=== PATIENT | male | born 1965 | race Caucasian/White ===

== ENCOUNTER 2019-07-29 12:41 | Inpatient (IN) | payer MEDICAID ==
[2019-07-29] VITALS (11 sets, daily range): BP systolic 116–159; BP diastolic 82–105
[~2019-07-29] VITALS: Ht 182.9 cm; Wt 78.0 kg
[2019-07-29] MEDS ORDERED: piperacillin/tazo 3.375gm/50ml 50 ML IV ONE (13:10)
[2019-07-29] MEDS ORDERED: normal saline 1000ML IV soln IV ONE (13:10)
[2019-07-29] MEDS ORDERED: ondansetron/PF 4mg/2ml inj IV ONE (13:10)
[2019-07-29] MEDS: morphine 4 MG/ML inj SYRINge IV PRN ×2 (13:34→14:08)
[2019-07-29 13:35] LABS: BASOPHILS # (AUTO) 0.1 X10'3 (0-0.2); BASOPHILS % (AUTO) 0.4 % (0-1); EOSINOPHILS % (AUTO) 0 % (0-6); HEMATOCRIT 53.9 % (42.0-52.0); LYMPHOCYTES % (AUTO) 5.8 % (21-51); MEAN CORPUSCULAR HEMOGLOBIN 30.3 PG (27.0-31.0); MEAN CORPUSCULAR HGB CONC 34.7 g/dL (33.0-36.5); MEAN CORPUSCULAR VOLUME 87.3 FL (78-98); MONOCYTES # (AUTO) 1.2 X10'3 (0-0.9); MONOCYTES % (AUTO) 7.2 % (2-12); NEUTROPHILS # (AUTO) 14.6 X10'3 (1.8-7.7); NEUTROPHILS % (AUTO) 86.6 % (42-75); PLATELET COUNT 292 X10'3 (140-440); RED BLOOD COUNT 6.18 X10'6 (4.70-6.10); RED CELL DISTRIBUTION WIDTH 13.3 % (11.5-14.5); WHITE BLOOD COUNT 16.8 X10'3 (4.5-11.0)
--- NOTE | 2019-07-29 13:42 | NUR ---
pt to ct
[2019-07-29 13:43] LABS: HEMOGLOBIN 18.7 g/dl (14.0-17.9)
[2019-07-29 13:56] LABS: ALANINE AMINOTRANSFERASE 33 U/L (12-78); ALBUMIN 3.9 G/DL (3.4-5.0); ALBUMIN/GLOBULIN RATIO 0.8 (1.1-1.5); ALKALINE PHOSPHATASE 139 IU/L (46-116); ANION GAP 14 (8-16); ASPARTATE AMINO TRANSFERASE 14 U/L (10-37); BILIRUBIN,TOTAL 2.9 MG/DL (0.1-1.0); BLOOD UREA NITROGEN 12 MG/DL (7-18); BUN/CREATININE RATIO 9.8 (5.4-32.0); CALCIUM 9.5 MG/DL (8.5-10.1); CHLORIDE 97 MMOL/L (99-107); CREATININE 1.23 MG/DL (0.60-1.10); GLUCOSE 165 MG/DL (70-104); LIPASE 105 U/L (73-393); POTASSIUM 4.2 MMOL/L (3.5-5.1); SODIUM 136 MMOL/L (135-145); TOTAL PROTEIN 8.6 G/DL (6.4-8.2); eGFR 61 ML/MIN
--- NOTE | 2019-07-29 14:01 | NUR ---
PT BACK FROM CT
[2019-07-29] MEDS ORDERED: morphine 4 MG/ML inj SYRINge IV ONE (14:10)
[2019-07-29] MEDS ORDERED: metroNIDAZOLE-Flagyl 500mg/NS 100 ML IV STA (14:15)
[2019-07-29] MEDS ORDERED: MELA3TAB64 PO (14:27)
[2019-07-29] MEDS ORDERED: MARIJUANA (14:27)
[2019-07-29] MEDS ORDERED: IBUP-1984 PO (14:27)
[2019-07-29] MEDS ORDERED: fluconazole/NS 400mg/200ml bag 200 ML IV ONE (14:45)
[2019-07-29] MEDS ORDERED: HYDROmorphone 1 mg/ml syringe IV ONE (15:00)
[2019-07-29] MEDS: normal saline 1000ml 1,000 ML IV SCH ×4 (15:27→22:40)
[2019-07-29] MEDS ORDERED: normal saline 1000ML IV soln IVB ONE (15:30)
[2019-07-29] MEDS ORDERED: ondansetron/PF 4mg/2ml inj IV PRN ×2 (16:00→19:00)
[2019-07-29] MEDS ORDERED: mag hydrox/Alum hydrox/simeth 30ml oral suspension PO PRN (16:00)
[2019-07-29] MEDS ORDERED: acetaminophen 325mg tablet PO PRN (16:00)
[2019-07-29] MEDS ORDERED: HYDROmorphone inj. 0.5 MG/0.5 ML DISP.SYRIN IV PRN (16:00)
[2019-07-29] MEDS ORDERED: piperacillin/tazo 4.5gm/100ml 100 ML IV SCH (16:00)
[2019-07-29] MEDS ORDERED: magnesium hydroxide 30ml (MOM) UD suspension PO PRN (16:00)
[2019-07-29 16:19] LABS: PARTIAL THROMBOPLASTIN TIME 28 SECONDS (22-32)
--- NOTE | 2019-07-29 16:27 | NUR ---
RELIEVING RN FOR BREAK, PT C/O LOWER BACK AND ABD PAIN "04/16", NO N/V,
[2019-07-29 16:29] LABS: CLARITY,URINE CLEAR (Clear); COLOR,URINE AMBER (Yellow); GLUCOSE, URINE NEGATIVE (Neg); KETONES,URINE 40 mg/dl (Neg); LEUKOCYTE ESTERASE ,URINE NEGATIVE (Neg); NITRITES, URINE NEGATIVE (Neg); OCCULT BLOOD,URINE TRACE-LYSED (Neg); PROTEIN,URINE 30 mg/dl (Neg); UROBILINOGEN,URINE >=8.0 E.U/dL (0.2-1.0)
[2019-07-29 16:42] LABS: UA COLLECTION TYPE URINAL
[2019-07-29 16:48] LABS: MUCUS STRANDS MANY /LPF (Neg); SQUAMOUS EPITHELIAL CELL,UR NONE SEEN /LPF (FEW); TRANSITIONAL EPI CELLS,URINE FEW /HPF
[2019-07-29 16:50] LABS: BACTERIA,URINE NONE SEEN /HPF (Neg); RBC,URINE 0-2 /HPF (0-2); WBC,URINE 0-4 /HPF (0-4)
[2019-07-29] MEDS ORDERED: gentamicin 40 MG/1 ML inj ONE (17:36)
[2019-07-29] MEDS ORDERED: clindamycin phosphate 150mg/ml inj. ONE (17:36)
--- NOTE | 2019-07-29 17:52 | NUR ---
MIMM CALLED FROM OR REPORT WAS GIVEN, PT IS ON HIS WAY TO OR. OR TECH AT BEDSIDE WHEELING PT TO OR.
[2019-07-29] MEDS ORDERED: rocuronium 10mg/ml inj IV ONE ×2 (18:31→20:02)
[2019-07-29] MEDS ORDERED: sevoflurane 250ml liquid IH ONE (18:31)
[2019-07-29] MEDS ORDERED: midazolam 2 mg/2 ml injection ONE (18:34)
[2019-07-29] MEDS ORDERED: fentaNYL /PF 50mcg/ml 5ml ampule ONE (18:35)
[2019-07-29] MEDS ORDERED: ceFOXitin 2 GM ADDVANTGE BAG 100 ML IV ONE (18:37)
[2019-07-29] MEDS ORDERED: ringers solution, lacted 1,000 ML IV SCH (18:59)
[2019-07-29] MEDS ORDERED: morphine 4 MG/ML inj SYRINge IV PRN ×2 (19:00)
[2019-07-29] MEDS ORDERED: proCHLORperazine 10 MG/2 ml inj IV PRN (19:00)
[2019-07-29] MEDS ORDERED: meperidine/PF 25mg/ml syringe IV PRN ×2 (19:00)
[2019-07-29] MEDS: heparin, porcine 5000 units/ml vial SQ SCH (20:00)
[2019-07-29] MEDS ORDERED: albumin (Human) 5% 250ml 250 ML IV ONE (20:02)
[2019-07-29] MEDS ORDERED: propofol inj 20 ML IV ONE (20:02)
[2019-07-29] MEDS ORDERED: BUPIVAcaine/PF 2.5mg/ml (0.25%) 10ml vial ONE (20:23)
[2019-07-29] MEDS ORDERED: BUPIVAcaine/PF 2.5 mg/ml (0.25%) 30ml vial ONE (20:23)
[2019-07-29] MEDS ORDERED: BUPIVACAINE liposomal/PF 13.3 MG/ML vial IM ONE (20:23)
[2019-07-29] MEDS ORDERED: fentaNYL/PF 50MCG/1 ML 2ML syringe ONE (20:27)
[2019-07-29] MEDS ORDERED: glycopyrrolate 0.2mg/ml inj ONE (21:09)
[2019-07-29] MEDS ORDERED: neostigmine methylsulfate 1 MG/ML 10ml vial ONE (21:09)
--- NOTE | 2019-07-29 21:19 | NUR ---
Received from OR via BED, accompanied by Anesthesiologist DR MANCILLA and report given by Anesthesiologist. PT DROWSY, ABDOMEN W/LARGE DRSG CDI, COLOSTOMY W/SCANT AMT OF S/S DRAINAGE, DERICK TO RIGHT ABDOMEN W/SANGUINOUS DRAINAGE, VERA CATHETER TO GRAVITY DRAINAGE W/YELLOW URINE. Addendum: 07/29/19 at 2130 by Kiera Solis RN Amended: Links added.
--- NOTE | 2019-07-29 21:19 | NUR ---
Report called to receiving nurse. Transferred via BED, NO Belongings, RECEIVING RN AT BEDSIDE TO RECEIVE PT, BLL, CALL LIGHT GIVEN, SIDE RAILS UP X2, NGT ATTACHED TO LCS, SCANT AMT OF S/S DRAINAGE IN TUBING, SCANT AMT OF S/S DRAINAGE IN COLOSTOMY BAG. Special Issues communicated to receiving nurse. YES. Addendum: 07/29/19 at 2224 by Kiera Solis RN Amended: Links added.
[2019-07-29] MEDS: meperidine/PF 25mg/ml syringe IV PRN ×2 (21:33→21:59)
[2019-07-29] MEDS: piperacillin/tazo 4.5gm/100ml 100 ML IV SCH (22:00)
[2019-07-29] MEDS: HYDROmorphone 1 mg/ml syringe IV PRN (22:56)
[2019-07-30] VITALS (8 sets, daily range): BP systolic 111–140; BP diastolic 74–105
[2019-07-30] MEDS: HYDROmorphone 1 mg/ml syringe IV PRN ×5 (03:02→20:37)
[2019-07-30] MEDS: normal saline 1000ml 1,000 ML IV SCH ×3 (03:59→18:00)
[2019-07-30] MEDS: piperacillin/tazo 4.5gm/100ml 100 ML IV SCH ×3 (05:16→22:21)
[2019-07-30 05:59] LABS: BASOPHILS % (AUTO) 0.3 % (0-1); EOSINOPHILS % (AUTO) 0 % (0-6); HEMATOCRIT 40.3 % (42.0-52.0); HEMOGLOBIN 13.9 g/dl (14.0-17.9); LYMPHOCYTES # (AUTO) 0.9 X10'3 (1.1-4.8); LYMPHOCYTES % (AUTO) 9.3 % (21-51); MEAN CORPUSCULAR HEMOGLOBIN 30.5 PG (27.0-31.0); MEAN CORPUSCULAR HGB CONC 34.6 g/dL (33.0-36.5); MEAN PLATELET VOLUME 6.8 FL (7.4-10.4); MONOCYTES # (AUTO) 0.9 X10'3 (0-0.9); MONOCYTES % (AUTO) 9.9 % (2-12); NEUTROPHILS # (AUTO) 7.6 X10'3 (1.8-7.7); NEUTROPHILS % (AUTO) 80.5 % (42-75); PLATELET COUNT 197 X10'3 (140-440); RED BLOOD COUNT 4.58 X10'6 (4.70-6.10); RED CELL DISTRIBUTION WIDTH 13.3 % (11.5-14.5); WHITE BLOOD COUNT 9.4 X10'3 (4.5-11.0)
[2019-07-30 06:11] LABS: ALANINE AMINOTRANSFERASE 20 U/L (12-78); ALBUMIN 2.3 G/DL (3.4-5.0); ALBUMIN/GLOBULIN RATIO 0.8 (1.1-1.5); ALKALINE PHOSPHATASE 72 IU/L (46-116); ANION GAP 9 (8-16); ASPARTATE AMINO TRANSFERASE 14 U/L (10-37); BLOOD UREA NITROGEN 9 MG/DL (7-18); CALCIUM 7.3 MG/DL (8.5-10.1); CHLORIDE 106 MMOL/L (99-107); GLUCOSE 110 MG/DL (70-104); POTASSIUM 4.1 MMOL/L (3.5-5.1); SODIUM 138 MMOL/L (135-145); TOTAL CARBON DIOXIDE 23.4 MMOL/L (24-32); TOTAL PROTEIN 5.3 G/DL (6.4-8.2); eGFR 78 ML/MIN
--- NOTE | 2019-07-30 06:33 | NUR ---
Problems reprioritized. Patient report given, questions answered & plan of care reviewed with Jaqueline BARNETT and Li BARNETT.
--- NOTE | 2019-07-30 06:53 | NUR ---
Patient in room [facility]. I have received report from Patti BARNETT and had the opportunity to ask questions and assume patient care.
[2019-07-30] MEDS: heparin, porcine 5000 units/ml vial SQ SCH ×2 (08:20→20:36)
[2019-07-30] MEDS ORDERED: zolpidem 5mg tablet PO PRN (11:30)
[2019-07-30] MEDS: Chloraseptic (Phenol) Spray 177ml MM PRN ×2 (12:20→16:25)
--- NOTE | 2019-07-30 17:37 | NUR ---
phoned Dr Mijares at 1500, no answer. No response.
--- NOTE | 2019-07-30 18:21 | NUR ---
Problems reprioritized. Patient report given, questions answered & plan of care reviewed with Patti BARNETT and pieter Moise RN.
--- NOTE | 2019-07-30 20:40 | NUR ---
Roque kay on patient. Orders given to dc mendoza catheter in am, patient to ambulate in am, okay for sips and chips, remove packing from wound, and change dressing, do not replace packing. Sputum culture and gram stain. Remove NG now.
[2019-07-31] MEDS: HYDROmorphone 1 mg/ml syringe IV PRN ×4 (00:35→19:53)
[2019-07-31] MEDS: Chloraseptic (Phenol) Spray 177ml MM PRN ×2 (00:36→10:03)
[2019-07-31] MEDS: normal saline 1000ml 1,000 ML IV SCH ×3 (03:21→23:12)
[2019-07-31] MEDS: piperacillin/tazo 4.5gm/100ml 100 ML IV SCH ×3 (04:38→21:41)
[2019-07-31 04:45] LABS: BASOPHILS % (AUTO) 0.3 % (0-1); EOSINOPHILS % (AUTO) 0.3 % (0-6); LYMPHOCYTES # (AUTO) 0.8 X10'3 (1.1-4.8); LYMPHOCYTES % (AUTO) 7.8 % (21-51); MEAN CORPUSCULAR HEMOGLOBIN 30.8 PG (27.0-31.0); MEAN PLATELET VOLUME 6.8 FL (7.4-10.4); MONOCYTES # (AUTO) 1.1 X10'3 (0-0.9); NEUTROPHILS # (AUTO) 8.2 X10'3 (1.8-7.7); NEUTROPHILS % (AUTO) 80.6 % (42-75); PLATELET COUNT 208 X10'3 (140-440); RED BLOOD COUNT 4.54 X10'6 (4.70-6.10); WHITE BLOOD COUNT 10.1 X10'3 (4.5-11.0)
[2019-07-31 05:15] LABS: ALANINE AMINOTRANSFERASE 23 U/L (12-78); ALBUMIN 2.3 G/DL (3.4-5.0); ALBUMIN/GLOBULIN RATIO 0.6 (1.1-1.5); ALKALINE PHOSPHATASE 81 IU/L (46-116); ANION GAP 8 (8-16); ASPARTATE AMINO TRANSFERASE 23 U/L (10-37); BLOOD UREA NITROGEN 8 MG/DL (7-18); BUN/CREATININE RATIO 7.1 (5.4-32.0); CALCIUM 8.2 MG/DL (8.5-10.1); CHLORIDE 102 MMOL/L (99-107); CREATININE 1.12 MG/DL (0.60-1.10); GLUCOSE 98 MG/DL (70-104); POTASSIUM 3.9 MMOL/L (3.5-5.1); SODIUM 137 MMOL/L (135-145); TOTAL CARBON DIOXIDE 27.1 MMOL/L (24-32); TOTAL PROTEIN 5.9 G/DL (6.4-8.2); eGFR 68 ML/MIN
--- NOTE | 2019-07-31 06:16 | NUR ---
Patient in room [facility]. I have received report from David Moise RN and Patti BARNETT and had the opportunity to ask questions and assume patient care.
--- NOTE | 2019-07-31 06:49 | NUR ---
Problems reprioritized. Patient report given, questions answered & plan of care reviewed with Liz BARNETT and Jaqueline BARNETT.
--- NOTE | 2019-07-31 07:34 | NUR ---
Pt voided per urinal x2 for total of 280cc. Bladder scan = 242cc. will continue to monitor.
[2019-07-31 07:40] VITALS: BP 147/99
[2019-07-31] MEDS: heparin, porcine 5000 units/ml vial SQ SCH ×2 (10:02→19:51)
[2019-07-31 11:30] VITALS: BP 142/95
[2019-07-31] MEDS ORDERED: HYDROcodone/acetaminophen 10/325mg tab PO PRN (12:30)
--- NOTE | 2019-07-31 14:00 | NUR ---
Pt will need reinforcemen of all teaching by primary nursing staff. Spoke to patient and his at length about all aspects of ostomy care from bag and wafer removal, cleaning site and stoma, applying barrier products, sizing stoma and cutting/rolling wafer to fit, proper fit, application of the wafer, application of the bag, closing the bag, emptying the bag, what to expect when on regular diet, and some of the other ostomy products. They were both receptive to teaching, but due to large amount of information, will need a lot of reinforcement. OSTOMY FACTS: Almost everyone has know of, or met, businessmen, entertainers, athletes, and people from all walks of life who have an ostomy. Ostomates (a person that has an ostomy) can ski, ride horses, bowl, and get healthy exercise in countless ways. Your usual activities of daily living can be resumed as soon as you are able. Gradually you will be able to wear the clothes worn before surgery. With modern pouches, nothing is noticeable under your clothing. It may be difficult at first to believe that an intimate relationship can be possible when one's body has been disfigured by surgery. This is not true. Love, fortunately, is not easily destroyed when it is based on genuine appreciation of a person as a thinking, feeling, reacting human being. AN OSTOMY IS NOT AN IMPAIRMENT!! DEFINITIONS: 1.OSTOMY: An opening that is created by a surgical procedure. The opening is called a "stoma". 2.STOMA: A surgical opening in the abdomen (belly) where intestine is brought through the abdominal wall and connected at the skin level. A stoma is shiny, wet and at first is dark purple but eventually turns pink, similar to the inside lining of your mouth. 3.COLON: A portion of the large bowel. 4.COLOSTOMY: A fecal diversion with an opening, (stoma) created anywhere along the colon. Making a connection between the colon and the abdominal wall. 5.ILLEOSTOMY: A fecal diversion with an opening, (stoma) created in the small intestine. Making a connection between the small intestine and the abdominal wall. 6.UROSTOMY: A urinary diversion with the ureters connected to a segment of the small bowel and one end is brought out and connected to the abdominal wall, creating a stoma. SHAPES and SIZES: "The stoma is usually round or oval. "It is anywhere from a dime to half dollar in size. "A stoma reaches its permanent size 6-8 weeks after surgery. PRODUCTS: 1.POUCH or APPLIANCE: An external device to contain stool or urine output and protect the skin around the stoma. It can be a one piece pouch or two pieces (a pouch and a wafer). 2.BARRIER: Substance that is used to protect the skin around the stoma from drainage and adhesive. 3.SKIN PREP or SEALANT: Product applied to the skin to reduce injury from moisture, drainage, or repeated pouch removal. Available in spray or wipes. 4.CLOSURE or CLAMP: A device used to close the bottom of a drainable pouch. 5.BRIDGE or ALBINO: A piece of plastic placed under a loop of bowel on the skins surface, to secure the bowel in place while the skin heals. POUCH CHANGE PROCEEDURE: 1.Assemble all the supplies "1 or 2 piece appliance "Ostomy paste (if needed) "Ostomy powder (if needed) "Skin prep wipes ( not recommended with coloplast products) "Moist wash cloth or cotton balls 2.Remove plastic center and paper backing from pouch. If pouch or wafer is not precut, use the sizing guide, or plastic backing from pouch to make a pattern. Do this by placing the paper over the stoma and trace it, or draw a pattern. Cut the wafer to fit and set it aside. 3.Remove old pouch by lifting up on tape while pressing skin down away from the tape. If there is a clip on your pouch, remove it and save it. 4.Clean skin or stoma with moistened wash cloth or cotton balls. Place a clean cotton ball over stoma hole to catch any drainage. Let skin dry. 5.For grooves or uneven areas in the skin- apply ostomy paste and sprinkle with ostomy powder, then gently shape the past so the area around the stoma is smooth and as flat as possible. Wipe off or blow away excess. Blot powder with skin prep wipe (DO NOT wipe powder). Let dry until no longer sticky. 6.For irritated or reddened skin- sprinkle ostomy powder on red or irritated area. Wipe off or blow away excess. Blot powder with skin prep wipe (DO NOT wipe powder). Let dry until no longer sticky. 7.Apply skin prep wipe to skin to which the pouch and tape will adhere. Let dry until no longer sticky. 8.If you have a one piece appliance- apply pouch so it is centered around the stoma. No skin should be exposed to stool. All skin should be covered by paste or pouch. 9.If you have a two piece appliance- Apply the wafer as described above, then snap or stick pouch onto wafer. Check to make sure wafer and pouch are securely connected. 10.Place clip on bottom of pouch. 11.Empty pouch when 1/3 full. OSTOMY SKIN CARE: "Good health care and nutrition are essential for healthy skin. "Usually a correct pouch size will prevent skin breakdown. "Use warm water and soap for skin cleansing. "Do not use creams or oil based products on skin around the stoma. This will prevent the appliance from sticking. "Use skin prep around the stoma. IT CAN TAKE 24 HOURS TO SEVERAL DAYS FOR SKIN TO HEAL. IF IT IS NOT RESOLVING, OR GETTING WORSE, CALL YOUR PRIMARY CARE DOCTOR. Addendum: 07/31/19 at 1401 by Yeny Connell RN Amended: Links added.
--- NOTE | 2019-07-31 17:24 | NUR ---
Abd dressing changed per orders, packing removed, renuka intact, island dressing placed. DERICK drain d/c'd. Pt tolerated well, no complications. Will continue to monitor.
--- NOTE | 2019-07-31 18:28 | NUR ---
Patient in room [facility]. I have received report from SIERRA BARNETT & JOSE ARMANDO BARNETT and had the opportunity to ask questions and assume patient care. Addendum: 07/31/19 at 1829 by Jennifer Camarena RN Amended: Links added.
--- NOTE | 2019-07-31 19:16 | NUR ---
Problems reprioritized. Patient report given, questions answered & plan of care reviewed with Jennifer BARNETT.
[2019-07-31 19:40] VITALS: BP 142/103
--- NOTE | 2019-07-31 20:45 | NUR ---
Problems reprioritized. Patient report given, questions answered & plan of care reviewed with Paula Ibrahim. Addendum: 07/31/19 at 2139 by Jennifer Camarena RN Amended: Links added.
--- NOTE | 2019-07-31 21:00 | NUR ---
Patient in room [facility]. I have received report from ANIBAL Rodriguez and had the opportunity to ask questions and assume patient care.
--- NOTE | 2019-07-31 22:00 | NUR ---
pt ambulated with front wheel walker 300 ft one loop around the unit. in room afterwards at bedside.
--- NOTE | 2019-07-31 22:45 | NUR ---
Problems reprioritized. Patient report given, questions answered & plan of care reviewed with ANIBAL Rodriguez.
--- NOTE | 2019-07-31 23:45 | NUR ---
PT DENIED NEEDING ANYTHING FOR PAIN AT THIS TIME. ABX INFUSING.
[2019-08-01] VITALS: BP 141/89
[2019-08-01] MEDS: Chloraseptic (Phenol) Spray 177ml MM PRN ×2 (01:01→21:16)
--- NOTE | 2019-08-01 01:05 | NUR ---
pt awoke denied pain med requested throat spay for dryness and sore.
--- NOTE | 2019-08-01 03:00 | NUR ---
resting eyes closed without s&s of distress at bedside.
[2019-08-01 04:00] VITALS: BP 166/99
--- NOTE | 2019-08-01 04:15 | NUR ---
PT MEDICATED FOR C/O PAIN WITH DILADID IV.
[2019-08-01] MEDS: HYDROmorphone 1 mg/ml syringe IV PRN ×3 (04:16→13:16)
[2019-08-01] MEDS: piperacillin/tazo 4.5gm/100ml 100 ML IV SCH ×3 (05:21→21:56)
--- NOTE | 2019-08-01 05:24 | NUR ---
pt awoke using is with gd results.
--- NOTE | 2019-08-01 06:07 | NUR ---
Problems reprioritized. Patient report given, questions answered & plan of care reviewed with Stefanie Ibrahim & Liz Ibrahim. Addendum: 08/01/19 at 0609 by Jennifer Camarena RN Amended: Links added.
[2019-08-01 06:10] LABS: BASOPHILS % (AUTO) 0.1 % (0-1); EOSINOPHILS # (AUTO) 0.1 X10'3 (0-0.9); EOSINOPHILS % (AUTO) 0.5 % (0-6); HEMATOCRIT 37.6 % (42.0-52.0); HEMOGLOBIN 13.2 g/dl (14.0-17.9); LYMPHOCYTES # (AUTO) 0.8 X10'3 (1.1-4.8); MEAN CORPUSCULAR HEMOGLOBIN 30.7 PG (27.0-31.0); MEAN CORPUSCULAR HGB CONC 35.2 g/dL (33.0-36.5); MEAN CORPUSCULAR VOLUME 87.2 FL (78-98); MEAN PLATELET VOLUME 6.9 FL (7.4-10.4); MONOCYTES # (AUTO) 1.4 X10'3 (0-0.9); MONOCYTES % (AUTO) 11.9 % (2-12); NEUTROPHILS # (AUTO) 9.4 X10'3 (1.8-7.7); NEUTROPHILS % (AUTO) 80.5 % (42-75); PLATELET COUNT 244 X10'3 (140-440); RED BLOOD COUNT 4.31 X10'6 (4.70-6.10); RED CELL DISTRIBUTION WIDTH 12.9 % (11.5-14.5); WHITE BLOOD COUNT 11.7 X10'3 (4.5-11.0)
[2019-08-01 06:40] LABS: ALANINE AMINOTRANSFERASE 26 U/L (12-78); ALBUMIN 2.1 G/DL (3.4-5.0); ALBUMIN/GLOBULIN RATIO 0.5 (1.1-1.5); ALKALINE PHOSPHATASE 87 IU/L (46-116); ANION GAP 11 (8-16); ASPARTATE AMINO TRANSFERASE 26 U/L (10-37); BILIRUBIN,TOTAL 3.8 MG/DL (0.1-1.0); BLOOD UREA NITROGEN 11 MG/DL (7-18); BUN/CREATININE RATIO 11.6 (5.4-32.0); CALCIUM 8.2 MG/DL (8.5-10.1); CHLORIDE 101 MMOL/L (99-107); CREATININE 0.95 MG/DL (0.60-1.10); GLUCOSE 101 MG/DL (70-104); POTASSIUM 3.3 MMOL/L (3.5-5.1); SODIUM 137 MMOL/L (135-145); eGFR 82 ML/MIN
--- NOTE | 2019-08-01 07:34 | NUR ---
Patient in room [facility]. I have received report from Jennifer BARNETT and had the opportunity to ask questions and assume patient care.
[2019-08-01 07:44] VITALS: BP 151/91
[2019-08-01] MEDS: heparin, porcine 5000 units/ml vial SQ SCH ×2 (08:25→21:09)
[2019-08-01] MEDS: normal saline 1000ml 1,000 ML IV SCH (09:01)
[2019-08-01] MEDS ORDERED: HYDROcodone/acetaminophen 5mg/325mg tablet PO PRN (11:15)
[2019-08-01 11:30] VITALS: BP 153/88
[2019-08-01] MEDS ORDERED: magnesium 4gm in 100ml NS 100 ML IV PRN (11:40)
[2019-08-01] MEDS ORDERED: potassium Cl 20 mEq SR tablet PO PRN (11:40)
[2019-08-01] MEDS ORDERED: magnesium Cl slow-release 64mg tablet PO PRN (11:40)
[2019-08-01] MEDS ORDERED: potassium CL 10mEq/100ml bag 100 ML IV PRN (11:40)
[2019-08-01] MEDS ORDERED: magnesium 2GM in 50ml NS 50 ML IV PRN (11:40)
[2019-08-01] MEDS: potassium Cl 20 mEq SR tablet PO PRN ×2 (13:09→21:10)
[2019-08-01] MEDS: potassium CL 20mEq in D5-1/2NS 1,000 ML IV SCH ×2 (13:14→22:01)
[2019-08-01] MEDS: methyl salicylate/menthol cream 85gm TP PRN (14:48)
[2019-08-01] MEDS: diphenhydrAMINE 25mg capsule PO PRN ×2 (18:00→22:06)
[2019-08-01] MEDS: HYDROcodone/acetaminophen 10/325mg tab PO PRN ×2 (18:00→22:07)
--- NOTE | 2019-08-01 19:05 | NUR ---
Problems reprioritized. Patient report given, questions answered & plan of care reviewed with Jennifer BARNETT.
--- NOTE | 2019-08-01 19:10 | NUR ---
and friend at the bedside pt with eyes closed resting after questions answered and everything arranged in place and order pt had requested.
[2019-08-01 19:50] VITALS: BP 145/99
--- NOTE | 2019-08-01 20:00 | NUR ---
attempt to give pt his meds requested we hold off let him rest his eyes for awhile. pt teaching and teaching done with the regarding norco the normal side effects and how and why it is ordered the way it is. pt teaching reinforced as to importance of walking why and why he is so bloated right now what he needs to do to relieve this.
--- NOTE | 2019-08-01 20:45 | NUR ---
pt finally accepted medications and pt abd very taunt with gas and hypoactive bs x4 quads. stressed after dissolving potassium in warm water and jello and pt taking it and other hs meds the importance of walking. x 3 people in the room to assist pt to get up out of bed. multiple times said i need to pee to distract staff then didn't, wait i can't do it right now, i have to do it this way teaCHING DONE HOW TO GET OUT OF BED THE LEAST PAINFUL WAY POSSIBLE DONE, PT ATTEMPT TO IT HIS WAY AND REDIRECTED AFTER he started to do it his way and he noted his pain increased. he then started to follow directions. up amb with walker Rn and SPORTS BOOK WRITER in the espino. during walking he was making statements why he was holding off walking. talked to pt again on the importance of walking as he belched ambulating in the espino. pt stated starting to feel slightly better stressed importance of needing to ambulate to pass gas and how he will have less pressure and abd pain with this in the end and will be able to rest better after this. total of 900ft and 3 laps done. assisted in sitting on edge of bed for 5 minutes before assisting pt back into the bed and putting scd's on. reinforcement of teaching done with pt and and use of Is unit. using 500 to 1000 now at a time. 2044 to 2144.
--- NOTE | 2019-08-01 22:00 | NUR ---
pt medicated for pain and itching with Benadryl and iv abx infusing and new bag of iv fluids hung. teaching done regarding potassium replacement and it's importance to him done.
--- NOTE | 2019-08-01 22:52 | NUR ---
pt resting eyes closed and at the bedside in the recliner next to him.
[2019-08-01 23:17] VITALS: BP 155/100
--- NOTE | 2019-08-02 00:15 | NUR ---
resting eyes closed no changes.
--- NOTE | 2019-08-02 01:53 | NUR ---
resting without change. in chair at bedside.
--- NOTE | 2019-08-02 02:46 | NUR ---
resting eyes closed without changes.
--- NOTE | 2019-08-02 04:45 | NUR ---
pt resting eyes closed without changes at this time.
[2019-08-02 05:14] LABS: BASOPHILS % (AUTO) 0.5 % (0-1); EOSINOPHILS # (AUTO) 0.1 X10'3 (0-0.9); EOSINOPHILS % (AUTO) 1.3 % (0-6); HEMATOCRIT 39.1 % (42.0-52.0); HEMOGLOBIN 13.6 g/dl (14.0-17.9); LYMPHOCYTES # (AUTO) 0.9 X10'3 (1.1-4.8); LYMPHOCYTES % (AUTO) 9.1 % (21-51); MEAN CORPUSCULAR HEMOGLOBIN 30.5 PG (27.0-31.0); MEAN CORPUSCULAR HGB CONC 34.7 g/dL (33.0-36.5); MEAN CORPUSCULAR VOLUME 87.8 FL (78-98); MEAN PLATELET VOLUME 6.5 FL (7.4-10.4); MONOCYTES # (AUTO) 1.5 X10'3 (0-0.9); MONOCYTES % (AUTO) 14.1 % (2-12); NEUTROPHILS # (AUTO) 7.8 X10'3 (1.8-7.7); PLATELET COUNT 273 X10'3 (140-440); RED BLOOD COUNT 4.46 X10'6 (4.70-6.10); RED CELL DISTRIBUTION WIDTH 13.1 % (11.5-14.5); WHITE BLOOD COUNT 10.4 X10'3 (4.5-11.0)
[2019-08-02] MEDS: piperacillin/tazo 4.5gm/100ml 100 ML IV SCH ×3 (05:17→21:54)
[2019-08-02] MEDS: diphenhydrAMINE 25mg capsule PO PRN ×3 (05:26→19:34)
[2019-08-02] MEDS: HYDROcodone/acetaminophen 10/325mg tab PO PRN ×3 (05:26→19:34)
--- NOTE | 2019-08-02 05:28 | NUR ---
awoke iv antibiotics hung c/o pain 11/14 medicated with norco and Benadryl for this.
[2019-08-02 05:29] LABS: ALANINE AMINOTRANSFERASE 31 U/L (12-78); ALBUMIN/GLOBULIN RATIO 0.5 (1.1-1.5); ALKALINE PHOSPHATASE 90 IU/L (46-116); ANION GAP 6 (8-16); ASPARTATE AMINO TRANSFERASE 28 U/L (10-37); BILIRUBIN,TOTAL 3.3 MG/DL (0.1-1.0); BLOOD UREA NITROGEN 9 MG/DL (7-18); BUN/CREATININE RATIO 9.5 (5.4-32.0); CALCIUM 8.1 MG/DL (8.5-10.1); CHLORIDE 103 MMOL/L (99-107); CREATININE 0.95 MG/DL (0.60-1.10); GLUCOSE 127 MG/DL (70-104); POTASSIUM 3.9 MMOL/L (3.5-5.1); SODIUM 139 MMOL/L (135-145); TOTAL CARBON DIOXIDE 30.2 MMOL/L (24-32); TOTAL PROTEIN 6.2 G/DL (6.4-8.2); eGFR 82 ML/MIN
--- NOTE | 2019-08-02 06:08 | NUR ---
Problems reprioritized. Patient report given, questions answered & plan of care reviewed with ISHAAN Arce RN. Addendum: 08/02/19 at 0609 by Jennifer Camarena RN Amended: Links added.
--- NOTE | 2019-08-02 06:44 | NUR ---
Patient in room [facility]. I have received report from Jennifer BARNETT and had the opportunity to ask questions and assume patient care.
[2019-08-02 07:30] VITALS: BP 155/98
[2019-08-02] MEDS: heparin, porcine 5000 units/ml vial SQ SCH ×2 (07:51→19:34)
[2019-08-02] MEDS: potassium CL 20mEq in D5-1/2NS 1,000 ML IV SCH ×2 (07:56→19:31)
[2019-08-02] MEDS: methyl salicylate/menthol cream 85gm TP PRN (08:15)
--- NOTE | 2019-08-02 10:04 | NUR ---
Nettie Addendum: 08/02/19 at 1005 by Samia Brothers RN Offered patient pain medication, patient states no thank you.
[2019-08-02 11:13] VITALS: BP 131/90
--- NOTE | 2019-08-02 15:47 | NUR ---
Patient is requesting to sleep and be left alone. He doesn't want his dinner tray put in room but to be held. Patient states that he will call if he is in need of anything,
--- NOTE | 2019-08-02 18:08 | NUR ---
Problems reprioritized. Patient report given, questions answered & plan of care reviewed with Jennifer BARNETT.
--- NOTE | 2019-08-02 18:20 | NUR ---
Patient in room [facility]. I have received report from ISHAAN BARNETT and had the opportunity to ask questions and assume patient care. Addendum: 08/02/19 at 1820 by Jennifer Camarena RN Amended: Links added.
[2019-08-02 19:30] VITALS: BP 149/95
--- NOTE | 2019-08-02 19:38 | NUR ---
pt medicated for pain at this time after completing 4 laps of walking in the espino. tolerated fair. pt needs alot of encouragement to ambulate and in teaching on ostomy care.
--- NOTE | 2019-08-02 20:53 | NUR ---
at bedside. no changes.
--- NOTE | 2019-08-02 21:19 | NUR ---
resting eyes closed without s&s of distress.
--- NOTE | 2019-08-02 22:27 | NUR ---
PT UP WITH ENCOURAGEMENT AMBULATED 4 LAPS AROUND THE UNIT PASSING FLATUS IN COLOSTOMY BAG NO STOOL SCANT BROWNISH SEROSANGUINEOUS FLUID IN THE BAG. SUTURE INTACT AND HEALING STOMA LOKS GOOD. PT ASSISTED BACK INTO BED.
--- NOTE | 2019-08-02 23:54 | NUR ---
pt resting eyes closed without s&S of distress at this time.
[2019-08-03] VITALS: BP 152/87
--- NOTE | 2019-08-03 01:20 | NUR ---
pt resting without changes.
--- NOTE | 2019-08-03 01:38 | NUR ---
pt c/o having to pee every 40 minutes. teaching done regarding this.
--- NOTE | 2019-08-03 03:35 | NUR ---
pt resting without changes. asleep in chair at the bedside.
--- NOTE | 2019-08-03 04:17 | NUR ---
resting without changes.
[2019-08-03] MEDS: piperacillin/tazo 4.5gm/100ml 100 ML IV SCH ×3 (04:51→22:34)
[2019-08-03] MEDS: diphenhydrAMINE 25mg capsule PO PRN ×2 (04:51→14:35)
[2019-08-03] MEDS: HYDROcodone/acetaminophen 10/325mg tab PO PRN ×2 (04:52→14:34)
[2019-08-03] MEDS: potassium CL 20mEq in D5-1/2NS 1,000 ML IV SCH ×2 (04:52→14:32)
--- NOTE | 2019-08-03 04:58 | NUR ---
abx hung and medicated for pain with norco. positioned to comfort.
--- NOTE | 2019-08-03 06:03 | NUR ---
Patient in room [facility]. I have received report from Jennifer BARNETT and had the opportunity to ask questions and assume patient care.
--- NOTE | 2019-08-03 06:03 | NUR ---
Problems reprioritized. Patient report given, questions answered & plan of care reviewed with ISHAAN BARNETT. Addendum: 08/03/19 at 0604 by Jennifer Camarena RN Amended: Links added.
[2019-08-03 06:29] LABS: BASOPHILS % (AUTO) 0.4 % (0-1); EOSINOPHILS # (AUTO) 0.2 X10'3 (0-0.9); EOSINOPHILS % (AUTO) 1.7 % (0-6); HEMATOCRIT 37.2 % (42.0-52.0); HEMOGLOBIN 13.1 g/dl (14.0-17.9); LYMPHOCYTES % (AUTO) 10.3 % (21-51); MEAN CORPUSCULAR HGB CONC 35.3 g/dL (33.0-36.5); MEAN CORPUSCULAR VOLUME 87.7 FL (78-98); MEAN PLATELET VOLUME 6.7 FL (7.4-10.4); MONOCYTES # (AUTO) 1.4 X10'3 (0-0.9); NEUTROPHILS # (AUTO) 6.8 X10'3 (1.8-7.7); NEUTROPHILS % (AUTO) 72.6 % (42-75); PLATELET COUNT 255 X10'3 (140-440); RED BLOOD COUNT 4.24 X10'6 (4.70-6.10); RED CELL DISTRIBUTION WIDTH 13.3 % (11.5-14.5); WHITE BLOOD COUNT 9.4 X10'3 (4.5-11.0)
[2019-08-03 07:00] LABS: ALANINE AMINOTRANSFERASE 49 U/L (12-78); ALBUMIN 2.1 G/DL (3.4-5.0); ALBUMIN/GLOBULIN RATIO 0.5 (1.1-1.5); ALKALINE PHOSPHATASE 95 IU/L (46-116); ANION GAP 10 (8-16); ASPARTATE AMINO TRANSFERASE 47 U/L (10-37); BILIRUBIN,TOTAL 2.7 MG/DL (0.1-1.0); BLOOD UREA NITROGEN 8 MG/DL (7-18); BUN/CREATININE RATIO 9.8 (5.4-32.0); CALCIUM 8.1 MG/DL (8.5-10.1); CHLORIDE 101 MMOL/L (99-107); CREATININE 0.82 MG/DL (0.60-1.10); GLUCOSE 125 MG/DL (70-104); POTASSIUM 3.7 MMOL/L (3.5-5.1); SODIUM 135 MMOL/L (135-145); TOTAL CARBON DIOXIDE 24.3 MMOL/L (24-32); TOTAL PROTEIN 6.2 G/DL (6.4-8.2); eGFR > 90 ML/MIN
[2019-08-03 07:03] VITALS: BP 161/98
[2019-08-03 08:24] LABS: TOTAL CELLS COUNTED 100
[2019-08-03 08:25] LABS: PLATELET ESTIMATE NORMAL
[2019-08-03] MEDS: heparin, porcine 5000 units/ml vial SQ SCH ×2 (09:06→19:23)
[2019-08-03 11:40] VITALS: BP 167/93
--- NOTE | 2019-08-03 15:21 | NUR ---
Patient adamant about being left alone today to sleep, had nursing attach note to door stating if door is closed allow patient to sleep and do not wake unless call light is turned on. Patient received Ohlman and Benadryl x1 today. NO BM in colostomy only green water consistency draining, positive for gas and BS.
[2019-08-03] MEDS ORDERED: hydrALAZINE 20mg/ml inj. IV PRN (16:15)
[2019-08-03] MEDS ORDERED: methylnaltrexone br 12mg/0.6ml inj***SubQ only SQ SCH (16:15)
--- NOTE | 2019-08-03 17:05 | NUR ---
Initial: Pt admitted for sepsis r/t perforated diverticulitis s/p exploratory lap with colectomy and colostomy. RD equine internship visited pt at bedside and provided written low fiber education and high protein education handouts with verbal review and RD contact information. RD equine internship provided pt with education on colostomy and list of foods to avoid with the colostomy. Pt encouraged to stay away from cruciferous vegetables and carbonated beverages. Pt reports small appetite normally and an intolerance to lactose, d/w dietary. Pt reports poor appetite currently with PO intake 25-50% avg meals with some refusals on full liquid diet. No BM, aware and relistor was added to pt med list. Pt may benefit from routine bowel care if constipation continues. Will continue to monitor. recommendations: 1. advance diet as medically indicated to low residue/low fiber diet 2. monitor need for ONS once diet is advanced and poor PO intake persists 2. bowel care as needed 3. weight per rx Addendum: 08/03/19 at 1705 by Wing Fern ORTIZ Amended: Links added. Addendum: 08/03/19 at [address] RD agree with note
[2019-08-03] MEDS: magnesium hydroxide 30ml (MOM) UD suspension PO SCH (17:12)
[2019-08-03 18:00] VITALS: BP 141/94
--- NOTE | 2019-08-03 18:19 | NUR ---
Problems reprioritized. Patient report given, questions answered & plan of care reviewed with Cesar BARNETT.
--- NOTE | 2019-08-03 18:35 | NUR ---
Patient in room [facility]. I have received report from ANIBAL Gracia and had the opportunity to ask questions and assume patient care.
[2019-08-04] MEDS: diphenhydrAMINE 25mg capsule PO PRN (00:14)
[2019-08-04] MEDS: HYDROcodone/acetaminophen 10/325mg tab PO PRN (00:14)
[2019-08-04 00:25] VITALS: BP 140/100
[2019-08-04] MEDS: piperacillin/tazo 4.5gm/100ml 100 ML IV SCH (05:10)
--- NOTE | 2019-08-04 06:13 | NUR ---
Problems reprioritized. Patient report given, questions answered & plan of care reviewed with ANIBAL Gracia.
--- NOTE | 2019-08-04 06:38 | NUR ---
Patient in room [facility]. I have received report from Cesar BARNETT and had the opportunity to ask questions and assume patient care.
[2019-08-04] MEDS: magnesium hydroxide 30ml (MOM) UD suspension PO SCH (08:17)
[2019-08-04] MEDS: heparin, porcine 5000 units/ml vial SQ SCH (08:18)
--- NOTE | 2019-08-04 09:49 | NUR ---
PAGER ID: [phone] MESSAGE: [phone] he would like Tylenol for a lower back ache. Can I put that in as an order. Samia [phone]
[2019-08-04] MEDS ORDERED: acetaminophen 325mg tablet PO PRN (09:55)
[2019-08-04] MEDS ORDERED: AMOX-580 PO (10:40)
[2019-08-04 11:00] VITALS: BP 135/80
[2019-08-04] MEDS ORDERED: HYDR-4353 PO (11:09)
--- NOTE | 2019-08-04 11:43 | NUR ---
Patient discharged on nursing end. All education completed, ostomy care completed. Ostomy supplies provided. Patient to make own appointment with Dr. Mijares, number provided for office. Patient has pain medication scrip in discharge folder. IV has been DC'd. No medications in pharmacy. No distress noted. VS have been stable.
--- NOTE | 2019-08-04 13:00 | NUR ---
Colostomy supplies sent home with patient. Education completed. HH will be following patient at home. Notified CM to inform HH to leave a message for patient if he doesn't answer phone.
== END 2019-08-04 12:58 | disposition home or self-care (01) | DRG 710 ==
LOC: ER 12:42 → ED HOLD 16:02 → SUR 3N 22:15
PROVIDERS: ADMIT Family Medicine; ATTEND Family Medicine
PROC: 0DBL0ZZ Excision of Transverse Colon, Open Approach (ICD-10-PCS; principal; 2019-07-29 18:31)
DX: A41.9 Sepsis, unspecified organism (principal); N17.0 Acute kidney failure with tubular necrosis; K57.20 Diverticulitis of large intestine with perforation and abscess without bleeding; E86.0 Dehydration; F12.90 Cannabis use, unspecified, uncomplicated; K65.9 Peritonitis, unspecified; E87.6 Hypokalemia; Z88.6 Allergy status to analgesic agent; Z88.8 Allergy status to other drugs, medicaments and biological substances
CPT/HCPCS: 36415; 74176; 80053; 81001; 83605; 83690; 83735; 84145; 85025; 85610; 85730; 86885; 86900; 86901; 87040; 87070; 87075; 87076; 87077; 87081; 87185; 87186; 93005; 97110; 97116; 97162; 97530; 99285; A4215; A4421; A4618; A6253; A6407; A6449; A7000; C1758; C9290; G0378; J0694; J1170; J1450; J1580; J1644; J2175; J2212; J2250; J2270; J2405; J2543; J2704; J2710; J3010; J3480; J3490; J7030; J7120; P9045; Q0163

== ENCOUNTER 2019-11-26 06:01 | Inpatient (IN) | payer MEDICAID ==
[2019-11-19 10:25] LABS: CLARITY,URINE CLEAR (Clear); COLOR,URINE YELLOW (Yellow); GLUCOSE, URINE NEGATIVE (Neg); KETONES,URINE NEGATIVE (Neg); LEUKOCYTE ESTERASE ,URINE NEGATIVE (Neg); NITRITES, URINE NEGATIVE (Neg); OCCULT BLOOD,URINE NEGATIVE (Neg); PROTEIN,URINE NEGATIVE (Neg); UROBILINOGEN,URINE 0.2 E.U/dL (0.2-1.0)
[2019-11-19 10:26] LABS: BASOPHILS % (AUTO) 0.8 % (0-1); EOSINOPHILS # (AUTO) 0.1 X10'3 (0-0.9); EOSINOPHILS % (AUTO) 2.6 % (0-6); LYMPHOCYTES # (AUTO) 1.6 X10'3 (1.1-4.8); LYMPHOCYTES % (AUTO) 27.3 % (21-51); MEAN CORPUSCULAR HEMOGLOBIN 29.6 PG (27.0-31.0); MEAN CORPUSCULAR HGB CONC 33.4 g/dL (33.0-36.5); MEAN CORPUSCULAR VOLUME 88.6 FL (78-98); MEAN PLATELET VOLUME 7.4 FL (7.4-10.4); MONOCYTES # (AUTO) 0.7 X10'3 (0-0.9); MONOCYTES % (AUTO) 11.5 % (2-12); NEUTROPHILS # (AUTO) 3.3 X10'3 (1.8-7.7); NEUTROPHILS % (AUTO) 57.8 % (42-75); PRE OP HEMATOCRIT 48.9 % (42.0-52.0); PRE OP HEMOGLOBIN 16.3 g/dL (14.0-17.9); PRE OP PLATELET COUNT 218 X10'3 (140-440); RED BLOOD COUNT 5.52 X10'6 (4.70-6.10); RED CELL DISTRIBUTION WIDTH 14.1 % (11.5-14.5)
[2019-11-19 10:32] LABS: PRE OP PROTIME 10.2 SECONDS (9.0-12.0)
[2019-11-19 10:33] LABS: ALBUMIN 4.1 G/DL (3.4-5.0); ALBUMIN/GLOBULIN RATIO 1.2 (1.1-1.5); ALKALINE PHOSPHATASE 124 IU/L (46-116); BLOOD UREA NITROGEN 14 MG/DL (7-18); CALCIUM 9.2 MG/DL (8.5-10.1); CHLORIDE 106 MMOL/L (99-107); CREATININE 1.08 MG/DL (0.60-1.10); PRE OP ALT 33 U/L (30-65); PRE OP ANION GAP 6 (8-16); PRE OP AST 19 U/L (10-37); PRE OP BILIRUB, TOTAL 0.4 MG/DL (0.0-1.0); PRE OP GLUCOSE 102 MG/DL (70-104); PRE OP POTASSIUM 4.4 MMOL/L (3.4-5.1); PRE OP SODIUM 141 MMOL/L (135-145); TOTAL CARBON DIOXIDE 29.1 MMOL/L (24-32); TOTAL PROTEIN 7.6 G/DL (6.4-8.2); eGFR 71 ML/MIN
[2019-11-19 10:43] LABS: UA COLLECTION TYPE VOIDED
[~2019-11-26] VITALS: Ht 182.9 cm; Wt 81.7 kg
[2019-11-26] VITALS (20 sets, daily range): BP systolic 120–177; BP diastolic 72–112
[~2019-11-26 06:01] MED LIST: NO HOME MEDS; ceFOXitin sod/dextrose 2g/50ml 50 ML IV ONE; famotidine 20mg tablet PO ONE; ringers solution, lacted 1,000 ML IV SCH
[2019-11-26] MEDS ORDERED: clindamycin phosphate 150mg/ml inj. ONE ×2 (07:56→08:20)
[2019-11-26] MEDS ORDERED: gentamicin 40 MG/1 ML inj ONE ×2 (07:56→08:20)
[2019-11-26] MEDS ORDERED: ondansetron/PF 4mg/2ml inj IV PRN (08:00)
[2019-11-26] MEDS ORDERED: ringers solution, lacted 1,000 ML IV SCH (08:00)
[2019-11-26] MEDS ORDERED: meperidine/PF 25mg/ml syringe IV PRN ×2 (08:00)
[2019-11-26] MEDS ORDERED: morphine 4 MG/ML inj SYRINge IV PRN (08:00)
[2019-11-26] MEDS ORDERED: proCHLORperazine 10 MG/2 ml inj IV PRN (08:00)
[2019-11-26] MEDS ORDERED: acetaminophen 1,000mg/100ml IV 100 ML IV PRN (08:00)
[2019-11-26] MEDS ORDERED: morphine 2 MG/ML inj. syringe IV PRN (08:00)
[2019-11-26] MEDS ORDERED: BUPIVACAINE liposomal/PF 13.3 MG/ML vial IM ONE (08:18)
[2019-11-26] MEDS ORDERED: BUPIVAcaine/PF 2.5 mg/ml (0.25%) 30ml vial ONE (08:18)
[2019-11-26] MEDS ORDERED: sevoflurane 250ml liquid IH ONE (08:22)
[2019-11-26] MEDS ORDERED: dexamethasone sod phosphate 10mg/ml inj ONE (08:22)
[2019-11-26] MEDS ORDERED: fentaNYL /PF 50mcg/ml 5ml ampule ONE (08:29)
[2019-11-26] MEDS ORDERED: midazolam 2 mg/2 ml injection ONE (08:29)
[2019-11-26] MEDS ORDERED: ondansetron/PF 4mg/2ml inj ONE (08:51)
[2019-11-26] MEDS ORDERED: rocuronium 10mg/ml inj IV ONE (08:51)
[2019-11-26] MEDS ORDERED: LIDOcaine 2% (20mg/ml) 5ml vial ONE (08:51)
[2019-11-26] MEDS ORDERED: propofol inj 20 ML IV ONE (08:51)
[2019-11-26] MEDS ORDERED: morphine 10mg/ml inj. ONE ×2 (10:23→10:58)
[2019-11-26] MEDS ORDERED: glycopyrrolate 0.2mg/ml inj ONE (10:25)
[2019-11-26] MEDS ORDERED: neostigmine methylsulfate 1 MG/ML 10ml vial ONE (10:25)
[2019-11-26] MEDS ORDERED: HYDROcodone/acetaminophen 10/325mg tab PO PRN (11:15)
--- NOTE | 2019-11-26 11:16 | NUR ---
Received from OR via , accompanied by Anesthesiologist DR ALATORRE and report given by Anesthesiolgist. AWAKENS TO VOICE. VITALS STABLE. DRESSING DI. DERICK TO ABD WITH SM AMNT SANGINOUS FLUID IN BULB.SUSANNA PAIN.
[2019-11-26] MEDS ORDERED: labetalol 20mg/4ml (5mg/ml) syringe IV PRN (11:30)
[2019-11-26] MEDS ORDERED: labetalol 20mg/4ml (5mg/ml) syringe IV ONE (11:37)
[2019-11-26] MEDS: meperidine/PF 25mg/ml syringe IV PRN ×2 (11:48→12:07)
--- NOTE | 2019-11-26 13:26 | NUR ---
Report called to receiving nurse. Transferred via BED Belongings . Special Issues communicated to receiving nurse. AWAKE AND ORIENTED. VITALS STABLE. DRESSING DI. STATES PAIN IMPROVING. TO SURGICAL RM 344B AT THIS TIME.
[2019-11-26] MEDS: ketorolac tromethamine 15mg/ml inj. IV SCH ×2 (15:35→20:04)
[2019-11-26] MEDS: potassium CL 20mEq in D5-1/2NS 1,000 ML IV SCH (15:36)
[2019-11-26] MEDS: ceFOXitin 1 GM/D5W 50mL IVPB 50 ML IV SCH ×2 (15:47→23:48)
--- NOTE | 2019-11-26 18:00 | NUR ---
Patient in room [facility]. I have received report from Mary Anne BARNETT and had the opportunity to ask questions and assume patient care.
[2019-11-26] MEDS: HYDROmorphone inj. 0.5 MG/0.5 ML DISP.SYRIN IV PRN (23:15)
[2019-11-27] VITALS: BP 127/89
[2019-11-27] MEDS: potassium CL 20mEq in D5-1/2NS 1,000 ML IV SCH ×5 (00:02→23:25)
[2019-11-27] MEDS: ketorolac tromethamine 15mg/ml inj. IV SCH ×4 (02:10→19:19)
[2019-11-27 05:01] LABS: BASOPHILS % (AUTO) 0.1 % (0-1); EOSINOPHILS % (AUTO) 0 % (0-6); HEMATOCRIT 47.9 % (42.0-52.0); HEMOGLOBIN 15.7 g/dl (14.0-17.9); LYMPHOCYTES # (AUTO) 0.7 X10'3 (1.1-4.8); LYMPHOCYTES % (AUTO) 5.6 % (21-51); MEAN CORPUSCULAR HEMOGLOBIN 28.8 PG (27.0-31.0); MEAN CORPUSCULAR HGB CONC 32.7 g/dL (33.0-36.5); MEAN CORPUSCULAR VOLUME 88.2 FL (78-98); MEAN PLATELET VOLUME 7.2 FL (7.4-10.4); MONOCYTES # (AUTO) 1.2 X10'3 (0-0.9); MONOCYTES % (AUTO) 9.4 % (2-12); NEUTROPHILS # (AUTO) 11.3 X10'3 (1.8-7.7); NEUTROPHILS % (AUTO) 84.9 % (42-75); PLATELET COUNT 225 X10'3 (140-440); RED BLOOD COUNT 5.43 X10'6 (4.70-6.10); RED CELL DISTRIBUTION WIDTH 13.9 % (11.5-14.5); WHITE BLOOD COUNT 13.3 X10'3 (4.5-11.0)
[2019-11-27 05:17] LABS: ALBUMIN 3.5 G/DL (3.4-5.0); ANION GAP 7 (8-16); BLOOD UREA NITROGEN 14 MG/DL (7-18); BUN/CREATININE RATIO 11.7 (5.4-32.0); CALCIUM 8.2 MG/DL (8.5-10.1); CHLORIDE 105 MMOL/L (99-107); GLUCOSE 152 MG/DL (70-104); POTASSIUM 4.9 MMOL/L (3.5-5.1); SODIUM 138 MMOL/L (135-145); TOTAL CARBON DIOXIDE 26.2 MMOL/L (24-32); eGFR 63 ML/MIN
--- NOTE | 2019-11-27 06:30 | NUR ---
Patient in room [facility]. I have received report from Khushi BARNETT and had the opportunity to ask questions and assume patient care.
--- NOTE | 2019-11-27 06:37 | NUR ---
Problems reprioritized. Patient report given, questions answered & plan of care reviewed with Michelle BARNETT.
[2019-11-27 07:00] VITALS: BP 151/94
--- NOTE | 2019-11-27 09:40 | NUR ---
Dr. Palmer rounded for Dr. Mijares. Pt was instructed that a BM would be necessary before discharge. Pt verbalized understanding.
[2019-11-27 11:00] VITALS: BP 162/91
[2019-11-27] MEDS: HYDROmorphone inj. 0.5 MG/0.5 ML DISP.SYRIN IV PRN ×2 (12:01→23:19)
[2019-11-27] MEDS: ondansetron/PF 4mg/2ml inj IV PRN ×2 (12:01→19:18)
--- NOTE | 2019-11-27 15:07 | NUR ---
Patient refused ambulation this am and as of this time. I had explained to patient this am about the importance of ambulation with preventing post op complication and speeding up recovery. Patient verbalized understanding but expressed that he is not yet ready and afraid that he won't tolerate getting up from bed yet. Patient stated he would try walking tonight
[2019-11-27 18:15] VITALS: BP 180/100
--- NOTE | 2019-11-27 18:34 | NUR ---
Problems reprioritized. Patient report given, questions answered & plan of care reviewed with Paula BARNETT.
--- NOTE | 2019-11-27 18:40 | NUR ---
Patient in room [facility]. I have received report from ANIBAL Martinez and had the opportunity to ask questions and assume patient care.
[2019-11-27 19:15] VITALS: BP 160/100
--- NOTE | 2019-11-27 19:15 | NUR ---
Discussed importance of ambulation before bedtime. Pt states he has alot of abdominal discomfort and c/o nausea. Pt refuses at this time. Will discussed and monitor with pt before shift change.
[2019-11-27 21:09] VITALS: BP_SYST 160; BP_SYST 166; BP_DIAS 100; BP_DIAS 90
--- NOTE | 2019-11-27 21:45 | NUR ---
Patient's blood pressures continues to be in 160/100's. Called Dr. Palmer and received order for Amlodipine 10mg PO once daily. Will continue to monitor patient's BP and place order when needed. Also received order to decrease fluid to 20 mL/hr and if pt continues to have hiccups/belching, will place order for NG tube.
[2019-11-28] VITALS (7 sets, daily range): BP systolic 160–182; BP diastolic 98–112
[2019-11-28] MEDS: ketorolac tromethamine 15mg/ml inj. IV SCH ×4 (01:30→19:18)
[2019-11-28] MEDS: HYDROmorphone inj. 0.5 MG/0.5 ML DISP.SYRIN IV PRN ×3 (04:23→21:03)
[2019-11-28 04:57] LABS: ALBUMIN 3.7 G/DL (3.4-5.0); ANION GAP 11 (8-16); BLOOD UREA NITROGEN 13 MG/DL (7-18); BUN/CREATININE RATIO 11.8 (5.4-32.0); CALCIUM 8.8 MG/DL (8.5-10.1); CHLORIDE 105 MMOL/L (99-107); GLUCOSE 121 MG/DL (70-104); POTASSIUM 4.3 MMOL/L (3.5-5.1); SODIUM 141 MMOL/L (135-145); TOTAL CARBON DIOXIDE 24.6 MMOL/L (24-32); eGFR 69 ML/MIN
[2019-11-28 04:59] LABS: BASOPHILS % (AUTO) 0.1 % (0-1); EOSINOPHILS % (AUTO) 0 % (0-6); HEMATOCRIT 48.3 % (42.0-52.0); HEMOGLOBIN 16.1 g/dl (14.0-17.9); LYMPHOCYTES % (AUTO) 6.5 % (21-51); MEAN CORPUSCULAR HEMOGLOBIN 29.3 PG (27.0-31.0); MEAN CORPUSCULAR HGB CONC 33.4 g/dL (33.0-36.5); MEAN CORPUSCULAR VOLUME 87.8 FL (78-98); MEAN PLATELET VOLUME 7.5 FL (7.4-10.4); MONOCYTES # (AUTO) 1.3 X10'3 (0-0.9); MONOCYTES % (AUTO) 8.6 % (2-12); NEUTROPHILS # (AUTO) 12.9 X10'3 (1.8-7.7); NEUTROPHILS % (AUTO) 84.8 % (42-75); PLATELET COUNT 257 X10'3 (140-440); RED CELL DISTRIBUTION WIDTH 14.1 % (11.5-14.5); WHITE BLOOD COUNT 15.3 X10'3 (4.5-11.0)
--- NOTE | 2019-11-28 05:36 | NUR ---
Patient is refusing ambulation at this time. Pt also continues to have hiccups/belching but is refusing placement of NG tube. Explained importances of ambulation after surgery, preventing post-op complications and early recovery. Patient verbalized understanding but states he is not ready at this time. Pt did ambulated once to the restroom after midnight, but was unable to have a BM. Pt states that he will try to walk after vital signs are performed. Pt continues to have high BPs, 160/100-182/98, performed manuals. Amlodipine 10 mg PO daily has been ordered and pt will start medication this morning. Order placed for NG tube, setting to low continuous if hiccups/belching does not get better. Will continue to monitor patient until shift change.
--- NOTE | 2019-11-28 06:18 | NUR ---
Problems reprioritized. Patient report given, questions answered & plan of care reviewed with ANIBAL Martinez.
--- NOTE | 2019-11-28 06:28 | NUR ---
Patient in room [facility]. I have received report from Paula BARNETT and had the opportunity to ask questions and assume patient care.
--- NOTE | 2019-11-28 07:45 | NUR ---
Patient still complaining of belching, he vomited about 25ml of light brown emesis. Offered Zofran but he refused. I also discussed with him the doctor's order to have NGT placement if he remains complaining of belching and nausea/vomiting but he refused it. Patient states "I think this is just from acid reflux!. I also discussed with the patient the need o ambulate today, he verbalized understanding.
--- NOTE | 2019-11-28 07:57 | NUR ---
Dr. Pickering notified about patient refusal of NGT insertion and also complaint of "acid reflux". I also let him know about elevated WBC today 15.3 without fever. Maalox order received for the abdominal discomfort
[2019-11-28] MEDS: mag hydrox/Alum hydrox/simeth 30ml oral suspension PO PRN (08:10)
[2019-11-28] MEDS: amLODIPine 5mg tablet PO SCH (08:10)
[2019-11-28] MEDS ORDERED: mag hydrox/Alum hydrox/simeth 30ml oral suspension PO PRN (08:55)
--- NOTE | 2019-11-28 09:15 | NUR ---
Patient ambulated with assistance of HOSPITAL HOUSEKEEPER x 1 lap this am
--- NOTE | 2019-11-28 10:02 | NUR ---
Patient agreed with NGT insertion for today when Dr. Pickering spoke to him about the importance of it
--- NOTE | 2019-11-28 11:24 | NUR ---
NG tube placed to right nare by student RN with resource RN present to guide. Pt tolerated procedure fair. Slight amount of bloody discharge from right nare with placement. Low intermittent suction attached, brown gastric contents draining. Will continue to monitor.
[2019-11-28] MEDS: enoxaparin 30mg/0.3ml syringe SUBCUT SCH (11:35)
--- NOTE | 2019-11-28 14:21 | NUR ---
Surgical wound incision on the midabdomen no signs of infection noted, renuka and packing intact. Applied new gauze dressing after cleaning with saline, covered with dry gauze then abd pad. Patient medicated with Dilaudid IV for pain prior to dressing change.
[2019-11-28] MEDS ORDERED: hydrALAZINE 20mg/ml inj. IV PRN (15:45)
--- NOTE | 2019-11-28 15:46 | NUR ---
Notified Dr. Pickering about persistent high BP even after starting Norvasc this am. Received an order for PRN Hydralazine 10mg IV Q6hrs PRN
--- NOTE | 2019-11-28 18:30 | NUR ---
Received hydralazine for b/p, will monitor. Addendum: 11/28/19 at 2127 by Bernard Barlow RN Amended: Links added.
--- NOTE | 2019-11-28 18:41 | NUR ---
Problems reprioritized. Patient report given, questions answered & plan of care reviewed with Prudence RN.
--- NOTE | 2019-11-28 19:09 | NUR ---
Patient in room [facility]. I have received report from Marilyn BARNETT and had the opportunity to ask questions and assume patient care.
[2019-11-28] MEDS: ondansetron/PF 4mg/2ml inj IV PRN (19:18)
--- NOTE | 2019-11-28 20:26 | NUR ---
Patient in room [facility]. I have received report from ANIBAL Chopra and had the opportunity to ask questions and assume patient care. Addendum: 11/28/19 at 2026 by Bernard Barlow RN Amended: Links added.
--- NOTE | 2019-11-28 20:28 | NUR ---
Problems reprioritized. Patient report given, questions answered & plan of care reviewed with Nery BARNETT.
--- NOTE | 2019-11-28 21:00 | NUR ---
no nausea, states "uncomfortable" refuses to amb tonight, states will amb later, turning freq, enc freq position change. Addendum: 11/28/19 at 2138 by Bernard Barlow RN Amended: Links added.
[2019-11-28] MEDS: temazepam 15mg capsule PO PRN (21:15)
[2019-11-29] VITALS: BP 150/98
[2019-11-29] MEDS: ketorolac tromethamine 15mg/ml inj. IV SCH ×4 (02:27→20:13)
[2019-11-29] MEDS: HYDROmorphone inj. 0.5 MG/0.5 ML DISP.SYRIN IV PRN ×5 (02:58→21:32)
[2019-11-29] MEDS: potassium CL 20mEq in D5-1/2NS 1,000 ML IV SCH (02:59)
--- NOTE | 2019-11-29 03:08 | NUR ---
pt still refusing to have n/g ricardo greeneerika, pt states it "hurt too much going down" wants to wait until am, see how he feels. Addendum: 11/29/19 at 0309 by Bernard Barlow RN Amended: Links added.
--- NOTE | 2019-11-29 03:09 | NUR ---
pt has had large amt ice chips tonight, explained to pt to have only small amt ice chips as it increases output from n/g. pt states throat hurts and only ice helps, req popcycles in am with no red dye. Addendum: 11/29/19 at 0311 by Bernard Barlow RN Amended: Links added.
[2019-11-29 05:03] LABS: BASOPHILS % (AUTO) 0.1 % (0-1); EOSINOPHILS % (AUTO) 0.1 % (0-6); HEMATOCRIT 51.2 % (42.0-52.0); LYMPHOCYTES # (AUTO) 1.4 X10'3 (1.1-4.8); LYMPHOCYTES % (AUTO) 9.3 % (21-51); MEAN CORPUSCULAR HEMOGLOBIN 29.3 PG (27.0-31.0); MEAN CORPUSCULAR HGB CONC 33.3 g/dL (33.0-36.5); MEAN CORPUSCULAR VOLUME 87.9 FL (78-98); MEAN PLATELET VOLUME 7.3 FL (7.4-10.4); MONOCYTES # (AUTO) 1.7 X10'3 (0-0.9); MONOCYTES % (AUTO) 11.8 % (2-12); NEUTROPHILS # (AUTO) 11.7 X10'3 (1.8-7.7); NEUTROPHILS % (AUTO) 78.7 % (42-75); PLATELET COUNT 259 X10'3 (140-440); RED BLOOD COUNT 5.82 X10'6 (4.70-6.10); RED CELL DISTRIBUTION WIDTH 13.9 % (11.5-14.5); WHITE BLOOD COUNT 14.9 X10'3 (4.5-11.0)
[2019-11-29 05:17] LABS: ALBUMIN 3.6 G/DL (3.4-5.0); ANION GAP 10 (8-16); BLOOD UREA NITROGEN 20 MG/DL (7-18); BUN/CREATININE RATIO 19.4 (5.4-32.0); CALCIUM 9.1 MG/DL (8.5-10.1); CHLORIDE 102 MMOL/L (99-107); CREATININE 1.03 MG/DL (0.60-1.10); GLUCOSE 117 MG/DL (70-104); POTASSIUM 3.4 MMOL/L (3.5-5.1); SODIUM 141 MMOL/L (135-145); TOTAL CARBON DIOXIDE 28.6 MMOL/L (24-32); eGFR 75 ML/MIN
--- NOTE | 2019-11-29 06:14 | NUR ---
Patient in room [facility]. I have received report from Nery BARNETT and had the opportunity to ask questions and assume patient care.
--- NOTE | 2019-11-29 06:21 | NUR ---
Problems reprioritized. Patient report given, questions answered & plan of care reviewed with ANIBAL Gracia. Addendum: 11/29/19 at 0622 by Bernard Barlow RN Amended: Links added.
[2019-11-29 07:04] VITALS: BP 159/107
[2019-11-29] MEDS: amLODIPine 5mg tablet PO SCH (07:11)
[2019-11-29] MEDS: enoxaparin 30mg/0.3ml syringe SUBCUT SCH (07:13)
--- NOTE | 2019-11-29 08:09 | NUR ---
Patient doesn't want to currently walk, states "good luck on trying to get me to walk." Educated patient. Patient states he is afraid to "fart" because he "sharts" usually when he does and he doesn't want to mess himself. Will continue to encourage to walk. NG still in place do to patient refusing to have it removed. Patient has some OCD about being clean and having things his way, cared for patient last visit and the behavior is consistent with previous behavior.
[2019-11-29] MEDS ORDERED: magnesium Cl slow-release 64mg tablet PO PRN (11:35)
[2019-11-29] MEDS ORDERED: potassium Cl 20 mEq SR tablet PO PRN (11:35)
[2019-11-29] MEDS ORDERED: potassium CL 10mEq/100ml bag 100 ML IV PRN (11:35)
[2019-11-29] MEDS ORDERED: magnesium 4gm in 100ml NS 100 ML IV PRN (11:35)
--- NOTE | 2019-11-29 11:36 | NUR ---
Dr Palmer rounding on patient stated to DC plain packing from staple line, Leave renuka intact and re-dress incision, Electrolyte protocol orders. Keep NG in place until patient passes gas. Dr Palmer aware canister for NG has filled since beginning of am shift. patient stated he has been drinking lots of water.
[2019-11-29 11:51] VITALS: BP 146/101
[2019-11-29] MEDS: K and/or MAG REPLACEMENT MC SCH ×2 (12:09→20:00)
--- NOTE | 2019-11-29 15:14 | NUR ---
Packing removed, wound cleaned with new dressing applied. Addendum: 11/29/19 at 1515 by Samia Brothers RN Amended: Links added.
[2019-11-29] MEDS: ondansetron/PF 4mg/2ml inj IV PRN (17:14)
--- NOTE | 2019-11-29 17:48 | NUR ---
Student documentation: I have reviewed all interventions, assessments performed and documented by Jarad antonio [facility]. Student Medication Administration: For this medication-pass time frame, all medication were reviewed, dispensed, administered and documented per hospital policy by Jarad KHAN for [facility].
--- NOTE | 2019-11-29 18:14 | NUR ---
Problems reprioritized. Patient report given, questions answered & plan of care reviewed with Chon BARNETT.
[2019-11-29 18:30] VITALS: BP 127/90
[2019-11-29] MEDS: temazepam 15mg capsule PO PRN (21:33)
[2019-11-30] VITALS: BP 127/97
[2019-11-30] MEDS: ketorolac tromethamine 15mg/ml inj. IV SCH ×5 (02:00→20:17)
[2019-11-30] MEDS: HYDROmorphone inj. 0.5 MG/0.5 ML DISP.SYRIN IV PRN ×3 (04:13→19:09)
[2019-11-30 04:59] LABS: BASOPHILS % (AUTO) 0.3 % (0-1); EOSINOPHILS # (AUTO) 0.1 X10'3 (0-0.9); EOSINOPHILS % (AUTO) 0.9 % (0-6); HEMATOCRIT 53.5 % (42.0-52.0); HEMOGLOBIN 17.8 g/dl (14.0-17.9); LYMPHOCYTES # (AUTO) 1.8 X10'3 (1.1-4.8); MEAN CORPUSCULAR HEMOGLOBIN 29.4 PG (27.0-31.0); MEAN CORPUSCULAR HGB CONC 33.3 g/dL (33.0-36.5); MEAN CORPUSCULAR VOLUME 88.3 FL (78-98); MEAN PLATELET VOLUME 7.1 FL (7.4-10.4); MONOCYTES # (AUTO) 1.5 X10'3 (0-0.9); MONOCYTES % (AUTO) 11.3 % (2-12); NEUTROPHILS # (AUTO) 10.1 X10'3 (1.8-7.7); NEUTROPHILS % (AUTO) 74.5 % (42-75); PLATELET COUNT 316 X10'3 (140-440); RED BLOOD COUNT 6.06 X10'6 (4.70-6.10); RED CELL DISTRIBUTION WIDTH 14.3 % (11.5-14.5); WHITE BLOOD COUNT 13.6 X10'3 (4.5-11.0)
[2019-11-30 05:01] LABS: ALBUMIN 3.6 G/DL (3.4-5.0); ANION GAP 7 (8-16); CALCIUM 9.2 MG/DL (8.5-10.1); CHLORIDE 100 MMOL/L (99-107); CREATININE 1.33 MG/DL (0.60-1.10); GLUCOSE 130 MG/DL (70-104); SODIUM 143 MMOL/L (135-145); eGFR 56 ML/MIN
[2019-11-30 05:02] LABS: BLOOD UREA NITROGEN 33 MG/DL (7-18); BUN/CREATININE RATIO 24.8 (5.4-32.0); POTASSIUM 3.5 MMOL/L (3.5-5.1)
--- NOTE | 2019-11-30 06:28 | NUR ---
Problems reprioritized. Patient report given, questions answered & plan of care reviewed with SUAD. Addendum: 11/30/19 at 0629 by Weston Arias RN Amended: Links added.
--- NOTE | 2019-11-30 06:34 | NUR ---
Patient in room [facility]. I have received report from ANIBAL CANO and had the opportunity to ask questions and assume patient care.
[2019-11-30 08:00] VITALS: BP 137/98
[2019-11-30] MEDS: K and/or MAG REPLACEMENT MC SCH ×2 (08:00→20:00)
[2019-11-30] MEDS: enoxaparin 30mg/0.3ml syringe SUBCUT SCH (08:13)
[2019-11-30] MEDS: potassium CL 20mEq in D5-1/2NS 1,000 ML IV SCH (09:17)
[2019-11-30] MEDS: amLODIPine 5mg tablet PO SCH (09:17)
[2019-11-30 12:51] VITALS: BP 134/88
--- NOTE | 2019-11-30 13:46 | NUR ---
PATIENT ORDERED FOR PATIENT TO HAVE NG REMOVED. DR. NIELSEN AWARE PATIENT HAD LARGE AMOUNT OF OUTPUT FROM NG. DR. NIELSEN OKAY FOR NG TUBE REMOVAL. PATIENT TOLERATED NG REMOVAL WELL.
--- NOTE | 2019-11-30 18:41 | NUR ---
Problems reprioritized. Patient report given, questions answered & plan of care reviewed with ANIBAL Willis.
--- NOTE | 2019-11-30 19:39 | NUR ---
Dressing change to abdomen. Minimal drainage, was falling off. Patient tolerated well.
[2019-11-30 20:00] VITALS: BP 136/89
[2019-11-30] MEDS: temazepam 15mg capsule PO PRN (22:10)
[2019-12-01] VITALS: BP 144/95
[2019-12-01] MEDS: mag hydrox/Alum hydrox/simeth 30ml oral suspension PO PRN ×3 (02:48→12:27)
[2019-12-01 05:00] LABS: BASOPHILS # (AUTO) 0.1 X10'3 (0-0.2); BASOPHILS % (AUTO) 0.6 % (0-1); EOSINOPHILS # (AUTO) 0.3 X10'3 (0-0.9); EOSINOPHILS % (AUTO) 2.6 % (0-6); HEMATOCRIT 49.6 % (42.0-52.0); HEMOGLOBIN 16.8 g/dl (14.0-17.9); LYMPHOCYTES # (AUTO) 1.8 X10'3 (1.1-4.8); LYMPHOCYTES % (AUTO) 16.6 % (21-51); MEAN CORPUSCULAR HEMOGLOBIN 29.9 PG (27.0-31.0); MEAN CORPUSCULAR HGB CONC 33.8 g/dL (33.0-36.5); MEAN CORPUSCULAR VOLUME 88.6 FL (78-98); MEAN PLATELET VOLUME 7.1 FL (7.4-10.4); MONOCYTES # (AUTO) 1.4 X10'3 (0-0.9); NEUTROPHILS # (AUTO) 7.3 X10'3 (1.8-7.7); NEUTROPHILS % (AUTO) 67.2 % (42-75); PLATELET COUNT 271 X10'3 (140-440); WHITE BLOOD COUNT 10.9 X10'3 (4.5-11.0)
[2019-12-01 05:16] LABS: ALBUMIN 3.3 G/DL (3.4-5.0); ANION GAP 8 (8-16); BLOOD UREA NITROGEN 27 MG/DL (7-18); CALCIUM 8.9 MG/DL (8.5-10.1); CHLORIDE 99 MMOL/L (99-107); CREATININE 1.23 MG/DL (0.60-1.10); GLUCOSE 115 MG/DL (70-104); POTASSIUM 3.2 MMOL/L (3.5-5.1); SODIUM 140 MMOL/L (135-145); TOTAL CARBON DIOXIDE 33.5 MMOL/L (24-32); eGFR 61 ML/MIN
--- NOTE | 2019-12-01 06:10 | NUR ---
Problems reprioritized. Patient report given, questions answered & plan of care reviewed with ANIBAL Seo.
--- NOTE | 2019-12-01 06:24 | NUR ---
Patient in room [facility]. I have received report from ANIBAL KNAPP and had the opportunity to ask questions and assume patient care.
[2019-12-01 07:00] VITALS: BP 139/98
[2019-12-01] MEDS: K and/or MAG REPLACEMENT MC SCH (08:00)
[2019-12-01] MEDS: ketorolac tromethamine 15mg/ml inj. IV SCH (08:00)
[2019-12-01] MEDS: amLODIPine 5mg tablet PO SCH (08:18)
[2019-12-01] MEDS: potassium Cl 20 mEq SR tablet PO PRN ×2 (08:18→12:27)
[2019-12-01] MEDS: enoxaparin 30mg/0.3ml syringe SUBCUT SCH (08:19)
[2019-12-01 12:17] VITALS: BP 123/87
--- NOTE | 2019-12-01 12:55 | NUR ---
PATIENT A&O AND IN NO APPARENT DISTRESS. DISCUSSED WITH PATIENT DISCHARGE INSTRUCTIONS , WOUND CARE AND FOLLOW UP APPOINTMENT. PATIENT VERBALIZES UNDERSTANDING OF DC INSTRUCTIONS. PATIENT DERICK WAS DC'D WITH NO ISSUES. DRESSINGS TO ABD CHANGED, CDI. PATIENT IS READY FOR DC AND IS WAITING FOR TRANSPORTATION HOME.
--- NOTE | 2019-12-01 13:12 | NUR ---
PATIENT DC'D ACCOMPANIED BY PCT TO LOBBY WHERE SPOUSE PICKING UP PATIENT. PATIENT WAS DC'D WITH ALL PERSONAL BELONGINGS.
== END 2019-12-01 13:05 | disposition home or self-care (01) | DRG 231 ==
LOC: PAS 06:01 → EDSTATUS 08:00 → SUR 3N 11:14
PROVIDERS: ADMIT Surgery; ATTEND Surgery
PROC: 0DNL0ZZ Release Transverse Colon, Open Approach (ICD-10-PCS; 2019-11-26)
PROC: 0D1N0Z4 Bypass Sigmoid Colon to Cutaneous, Open Approach (ICD-10-PCS; principal; 2019-11-26 08:22)
DX: K66.0 Peritoneal adhesions (postprocedural) (postinfection) (principal); Z88.4 Allergy status to anesthetic agent
CPT/HCPCS: 36415; 71046; 74018; 80048; 80053; 81003; 82948; 85025; 85610; 85730; 86885; 86900; 86901; 87081; 87635; 93005; A4618; A6253; A6407; A6449; A7000; C1758; C9290; G0378; J0131; J0360; J0694; J1100; J1170; J1580; J1650; J1885; J2001; J2175; J2250; J2270; J2405; J2704; J2710; J3010; J3480; J3490; J7120

== ENCOUNTER 2020-06-01 12:35 | Inpatient (IN) | payer MEDICAID ==
[2020-05-27 12:11] LABS: BASOPHILS % (AUTO) 0.7 % (0-1); EOSINOPHILS # (AUTO) 0.1 X10'3 (0-0.9); EOSINOPHILS % (AUTO) 2.2 % (0-6); LYMPHOCYTES # (AUTO) 1.5 X10'3 (1.1-4.8); LYMPHOCYTES % (AUTO) 28.1 % (21-51); MEAN CORPUSCULAR HEMOGLOBIN 30.4 PG (27.0-31.0); MEAN CORPUSCULAR VOLUME 89.4 FL (78-98); MONOCYTES # (AUTO) 0.6 X10'3 (0-0.9); MONOCYTES % (AUTO) 11.7 % (2-12); NEUTROPHILS % (AUTO) 57.3 % (42-75); PRE OP HEMATOCRIT 48.1 % (42.0-52.0); PRE OP HEMOGLOBIN 16.3 g/dL (14.0-17.9); PRE OP PLATELET COUNT 228 X10'3 (140-440); RED BLOOD COUNT 5.38 X10'6 (4.70-6.10); RED CELL DISTRIBUTION WIDTH 13.9 % (11.5-14.5)
[2020-05-27 12:21] LABS: PRE OP PROTIME 10.5 SECONDS (9.0-12.0)
[2020-05-27 12:24] LABS: ALBUMIN 4.2 G/DL (3.4-5.0); ALBUMIN/GLOBULIN RATIO 1.2 (1.1-1.5); ALKALINE PHOSPHATASE 120 IU/L (46-116); BLOOD UREA NITROGEN 14 MG/DL (7-18); BUN/CREATININE RATIO 13.7 (5.4-32.0); CHLORIDE 107 MMOL/L (99-107); CREATININE 1.02 MG/DL (0.60-1.10); PRE OP ALT 42 U/L (30-65); PRE OP ANION GAP 7 (8-16); PRE OP AST 20 U/L (10-37); PRE OP BILIRUB, TOTAL 0.7 MG/DL (0.0-1.0); PRE OP GLUCOSE 106 MG/DL (70-104); PRE OP POTASSIUM 4.5 MMOL/L (3.4-5.1); PRE OP SODIUM 142 MMOL/L (135-145); TOTAL CARBON DIOXIDE 28.4 MMOL/L (24-32); TOTAL PROTEIN 7.7 G/DL (6.4-8.2); eGFR 76 ML/MIN
[2020-06-01] VITALS (14 sets, daily range): BP systolic 125–164; BP diastolic 50–100
[~2020-06-01] VITALS: Ht 182.9 cm; Wt 87.4 kg
[~2020-06-01 12:35] MED LIST changes: +ceFAZolin 2gm in dextrose, iso 50 ML IV ONE; -ceFOXitin sod/dextrose 2g/50ml 50 ML IV ONE
[2020-06-01] MEDS ORDERED: morphine 4 MG/ML inj SYRINge IV PRN (14:25)
[2020-06-01] MEDS ORDERED: meperidine/PF 25mg/ml syringe IV PRN ×3 (14:25)
[2020-06-01] MEDS ORDERED: proCHLORperazine 10 MG/2 ml inj IV PRN (14:25)
[2020-06-01] MEDS ORDERED: ringers solution, lacted 1,000 ML IV SCH (14:25)
[2020-06-01] MEDS ORDERED: morphine 2 MG/ML inj. syringe IV PRN (14:25)
[2020-06-01] MEDS ORDERED: ondansetron/PF 4mg/2ml inj IV PRN ×2 (14:25→19:25)
[2020-06-01] MEDS ORDERED: BUPIVAcaine/PF 2.5 mg/ml (0.25%) 30ml vial ONE ×2 (15:41→18:31)
[2020-06-01] MEDS ORDERED: glycopyrrolate 0.2mg/ml inj ONE (15:57)
[2020-06-01] MEDS ORDERED: midazolam 2 mg/2 ml injection ONE (15:57)
[2020-06-01] MEDS ORDERED: ketorolac trometh. 30mg/ml inj. ONE (15:57)
[2020-06-01] MEDS ORDERED: fentaNYL /PF 50mcg/ml 5ml ampule ONE (15:57)
[2020-06-01] MEDS ORDERED: neostigmine methylsulfate 1 MG/ML 10ml vial ONE (15:57)
[2020-06-01] MEDS ORDERED: sevoflurane 250ml liquid IH ONE (15:57)
[2020-06-01] MEDS ORDERED: propofol inj 20 ML IV ONE (16:05)
[2020-06-01] MEDS ORDERED: dexamethasone sod phosphate 4mg/ml inj. ONE (16:05)
[2020-06-01] MEDS ORDERED: LIDOcaine 2% (20mg/ml) 5ml vial ONE (16:05)
[2020-06-01] MEDS ORDERED: ondansetron/PF 4mg/2ml inj ONE (16:05)
[2020-06-01] MEDS ORDERED: rocuronium 10mg/ml inj IV ONE ×2 (16:05→17:28)
[2020-06-01] MEDS ORDERED: clindamycin phosphate 150mg/ml inj. ONE (18:24)
[2020-06-01] MEDS ORDERED: gentamicin 40 MG/1 ML inj ONE (18:24)
[2020-06-01] MEDS ORDERED: BUPIVACAINE liposomal/PF 13.3 MG/ML vial IM ONE (18:29)
[2020-06-01] MEDS ORDERED: BUPIVAcaine/PF 2.5mg/ml (0.25%) 10ml vial ONE (18:29)
[2020-06-01] MEDS: potassium CL 20mEq in D5-1/2NS 1,000 ML IV SCH (19:25)
[2020-06-01] MEDS ORDERED: HYDROcodone/acetaminophen 10/325mg tab PO PRN (19:25)
[2020-06-01] MEDS ORDERED: oxyCODONE/APAP 10/325mg tablet PO PRN (19:30)
[2020-06-01] MEDS ORDERED: acetaminophen 1,000mg/100ml IV 100 ML IV ONE (19:31)
--- NOTE | 2020-06-01 19:40 | NUR ---
RECEIVED FROM OR VIA BED ACCOMPANIED BY ANESTHESIOLOGIST DR PEREIRA, REPORT GIVEN.PT DROWSY BUT AROUSES WITH COMPLAINT OF PAIN AT LEVEL. 20 GAUGE PIV L F PATENT AND RUNNING LR AT 100 ML/HR. LG BANDAID DRESSING 2 TO ABD CDI, [place] DRESSING MIDLINE ABD WITH SCANT SS DRAINAGE, DERICK DRAIN R SIDE TO SUCTION. ABD SOFT. PPULSES PRESENT, BRISK CAP REFILL, SKIN PINK AND WARM, CHACON, SCDS APPLIED.
--- NOTE | 2020-06-01 20:20 | NUR ---
TRANSFERRED VIA BED ACCOMPANIED BY ANESTHESIOLOGIST DR PEREIRA, REPORT GIVEN.PT AWAKE AND ALERT WITH COMPLAINT OF PAIN AT LEVEL 4. 20 GAUGE PIV L F PATENT AND RUNNING LR AT 100 ML/HR. LG BANDAID DRESSING 2 TO ABD CDI, [place] DRESSING MIDLINE ABD WITH SCANT SS DRAINAGE, DERICK DRAIN R SIDE TO SUCTION. ABD SOFT. PPULSES PRESENT, BRISK CAP REFILL, SKIN PINK AND WARM, CHACON, SCDS APPLIED. RESTING AND LEFT IN CARE OF SRI RN
--- NOTE | 2020-06-01 20:30 | NUR ---
PATIENT ADMITTED TO ROOM 348B FROM RECOVERY ROOM AFTER OPEN HERNIA REPAIR WAS DONE BY DR. HUGHES. PLACED COMFORTABLE IN BED. VITAL SIGNS MONITORED.
[2020-06-01] MEDS: HYDROmorphone 1 mg/ml syringe IV PRN (21:56)
[2020-06-02] VITALS: BP 107/70
[2020-06-02 00:15] VITALS: BP 128/54
[2020-06-02] MEDS: potassium CL 20mEq in D5-1/2NS 1,000 ML IV SCH ×2 (00:47→11:25)
[2020-06-02] MEDS: ceFAZolin/D5W- 1GM premix 50 ML IV SCH ×2 (00:47→08:17)
[2020-06-02] MEDS: HYDROmorphone 1 mg/ml syringe IV PRN ×2 (02:07→08:22)
[2020-06-02 04:00] VITALS: BP 127/90
[2020-06-02 05:59] LABS: BASOPHILS % (AUTO) 0.1 % (0-1); EOSINOPHILS % (AUTO) 0 % (0-6); HEMATOCRIT 47.2 % (42.0-52.0); HEMOGLOBIN 16.2 g/dl (14.0-17.9); LYMPHOCYTES # (AUTO) 0.7 X10'3 (1.1-4.8); LYMPHOCYTES % (AUTO) 5.6 % (21-51); MEAN CORPUSCULAR HEMOGLOBIN 30.7 PG (27.0-31.0); MEAN CORPUSCULAR HGB CONC 34.3 g/dL (33.0-36.5); MEAN CORPUSCULAR VOLUME 89.3 FL (78-98); MEAN PLATELET VOLUME 7.3 FL (7.4-10.4); MONOCYTES # (AUTO) 0.7 X10'3 (0-0.9); MONOCYTES % (AUTO) 5.9 % (2-12); NEUTROPHILS # (AUTO) 10.7 X10'3 (1.8-7.7); NEUTROPHILS % (AUTO) 88.4 % (42-75); PLATELET COUNT 231 X10'3 (140-440); RED BLOOD COUNT 5.28 X10'6 (4.70-6.10); WHITE BLOOD COUNT 12.1 X10'3 (4.5-11.0)
--- NOTE | 2020-06-02 06:30 | NUR ---
Problems reprioritized. Patient report given, questions answered & plan of care reviewed with JONATAN BARNETT.
[2020-06-02 07:30] VITALS: BP 134/92
[2020-06-02] MEDS: gabapentin 400mg capsule PO SCH ×3 (08:00→16:00)
[2020-06-02 12:30] VITALS: BP 140/91
--- NOTE | 2020-06-02 16:12 | NUR ---
PATIENT STABLE AND APPROPRIATE FOR DISCHARGE HOME WITH . IV REMOVED. ALL BELONGINGS TAKEN FROM ROOM. DISCHARGE EDUCATION AND INSTRUCTIONS GIVEN AND REVIEWED WITH PATIENT. PATIENT IS GOING TO D/C WITH THE DERICK DRAIN, HE HAS BEEN INSTRUCTED ON EMPTYING AND CARING FOR DERICK DRAIN. HE VERBALIZED UNDERSTANDING AND RETURNED DEMONSTRATION. NEW PRESCRIPTIONS WERE WRITTEN AND GIVEN TO PATIENT (BACTRIM & NORCO).
== END 2020-06-02 16:19 | disposition home or self-care (01) | DRG 227 ==
LOC: PAS 12:35 → SUR 3N 19:24
PROVIDERS: ADMIT Surgery; ATTEND Surgery
PROC: 0WJF4ZZ Inspection of Abdominal Wall, Percutaneous Endoscopic Approach (ICD-10-PCS; 2020-06-01)
PROC: 8E0W0CZ Robotic Assisted Procedure of Trunk Region, Open Approach (ICD-10-PCS; 2020-06-01)
PROC: 3E0T3BZ Introduction of Anesthetic Agent into Peripheral Nerves and Plexi, Percutaneous Approach (ICD-10-PCS; 2020-06-01)
PROC: 0DNW4ZZ Release Peritoneum, Percutaneous Endoscopic Approach (ICD-10-PCS; 2020-06-01)
PROC: 0WUF0JZ Supplement Abdominal Wall with Synthetic Substitute, Open Approach (ICD-10-PCS; principal; 2020-06-01 15:57)
DX: K43.2 Incisional hernia without obstruction or gangrene (principal); K66.0 Peritoneal adhesions (postprocedural) (postinfection); Z93.3 Colostomy status; Z53.31 Laparoscopic surgical procedure converted to open procedure
CPT/HCPCS: 36415; 71046; 80053; 82948; 85025; 85610; 85730; 86885; 86900; 86901; 87081; 87635; 93005; A4215; A4618; A6449; C1758; C1781; C9290; G0378; J0131; J0690; J1100; J1170; J1580; J1885; J2001; J2175; J2250; J2405; J2704; J2710; J3010; J3480; J3490; J7120